=== PATIENT | male | born 1955 | race Caucasian/White ===

== ENCOUNTER → 2020-04-07 | Outpatient (CLI) | payer OTHER ==
[~2020-04-07] MED LIST: ALLOPURINOL100 MG PO; ANTIVERT25 MG PO; ASPIRIN CHEWABL81 M1 PO; CAPSAICIN0.075% T; CHLORTHALIDONE25 MG PO; CLEOCIN150 MG PO; EC NAPROSYN500 MG PO; INDOMETHACIN50 MG PO; LIPITOR10 MG PO; LISINOPRIL30 MG PO; MEDROL DOSEPAK4 MG PO; Motrin,Rufen400 MG PO; NORCO 325 MG-51 TAB PO; NORTRIPTYLINE 25 MG PO; NORTRIPTYLINE75 MG PO; NORVASC5 MG PO; ROBAXIN500 M1 PO; TYLENOL325 M1 PO; ZOFRAN4 MG PO
== END | disposition home or self-care (01) ==
LOC: US 07:41
PROVIDERS: ATTEND Nurse Practitioner Family
DX: Z72.0 Tobacco use (principal)

== ENCOUNTER → 2021-04-11 | Outpatient (CLI) | payer OTHER | END | disposition home or self-care (01) | LOC: CARD 07:42 | PROVIDERS: ATTEND Nurse Practitioner Family | DX: I51.7 Cardiomegaly (principal); R01.1 Cardiac murmur, unspecified ==

== ENCOUNTER 2021-12-05 23:59 | Emergency (ER) | payer OTHER | END 2021-12-06 01:16 | disposition home or self-care (01) | LOC: ED 23:59 | DX: K59.00 Constipation, unspecified (principal); Z88.0 Allergy status to penicillin; Z79.899 Other long term (current) drug therapy; Z90.49 Acquired absence of other specified parts of digestive tract ==

== ENCOUNTER → 2021-12-31 | Outpatient (CLI) | payer OTHER ==
[~2021-12-31] MED LIST changes: +FLOMAX0.4 MG PO
== END | disposition home or self-care (01) ==
LOC: CT 10:43
PROVIDERS: ATTEND Nurse Practitioner Family
DX: J43.2 Centrilobular emphysema (principal); M25.78 Osteophyte, vertebrae

== ENCOUNTER 2022-01-07 18:15 | Emergency (ER) | payer OTHER ==
[~2022-01-07 18:15] MED LIST changes: -FLOMAX0.4 MG PO
[2022-01-07 19:17] LABS: BASO % 0.3 % (0.0-1.0); EOS # 0.1 10*3/uL (0.0-0.4); EOS % 2.3 % (1.0-4.0); HEMATOCRIT 44.4 % (42.0-52.0); LYMPH # 2.1 10*3/uL (1.3-4.4); LYMPH % 35.3 % (27.0-41.0); MEAN CELL VOLUME 96.9 fl (80.0-94.0); MEAN CORPUSCULAR HGB 31.4 pg (27.0-31.0); MEAN CORPUSCULAR HGB CONC 32.4 g/dl (33.0-37.0); MONO # 0.5 10*3/uL (0.1-1.0); MONO % 7.5 % (3.0-9.0); NEUT # 3.3 10*3/uL (2.3-7.9); NEUT % 54.4 % (47.0-73.0); PLATELET COUNT AUTOMATED 203 10*3/uL (130-400); RED BLOOD COUNT 4.58 10*6/uL (4.50-5.90); RED CELL DISTRI WIDTH 14.8 % (0-14.5)
[2022-01-07 19:22] LABS: BILIRUBIN Negative (Negative); BLOOD 2+ (Negative); CLARITY Clear (Clear); COLOR Yellow (Yellow); GLUCOSE Negative (Negative); KETONE Negative (Negative); LEUKO ESTERASE Trace (Negative); NITRITE Negative (Negative); SPECIFIC GRAVITY 1.015 (1.001-1.030)
[2022-01-07 19:29] LABS: BUN 12 mg/dl (7-24); CHLORIDE 111 mmol/L (98-107); CREATININE 1.11 mg/dL (0.70-1.30); POTASSIUM 3.8 mmol/L (3.5-5.1); SODIUM 144 mmol/L (136-145)
[2022-01-07 19:30] LABS: BACTERIA 1+; EPITHELIAL CELLS 0-2; RBC 31-40 rbc/hpf (0-2)
[2022-01-07 19:31] LABS: CALCIUM OXALATE CRYSTALS Trace
[2022-01-07] MEDS ORDERED: FLOMAX0.4 MG PO (20:39)
[2022-01-07] MEDS ORDERED: ZOFRAN4 MG PO (20:39)
== END 2022-01-07 20:45 | disposition home or self-care (01) ==
LOC: ED 18:15
PROVIDERS: Internal Medicine
DX: N13.2 Hydronephrosis with renal and ureteral calculous obstruction (principal)